=== PATIENT | male | born 1940 | race Caucasian/White ===

== ENCOUNTER 2019-02-06 07:19 | Day surgery (SDC) | payer MEDICARE, OTHER ==
[2019-02-06] MEDS ORDERED: Dextrose 5%-Lactated Ringers 1,000 ML IV SCH (08:00)
[2019-02-06] MEDS ORDERED: fentaNYL 100 MCG/2 ML SDV ONE (08:38)
[2019-02-06] MEDS ORDERED: Midazolam 1 MG/ML 2 ML SDV ONE (08:38)
[2019-02-06] MEDS ORDERED: Propofol 200 MG/20 ML SDV ONE (08:38)
--- NOTE | 2019-02-12 12:15 | OR ---
DATE OF PROCEDURE: 02/06/2019 SURGEON: Farooq Morse MD PREOPERATIVE DIAGNOSIS: Blood in stool, with falling ferritin levels. POSTOPERATIVE DIAGNOSES: 1. Blood in stool, with falling ferritin levels. 2. Normal upper gastrointestinal endoscopy. 3. Colonoscopy showing: a. Minimal left-sided diverticulosis. b. Excoriated mixed hemorrhoids with [place] thrombosed hemorrhoid (probable bleeding source). OPERATIVE PROCEDURES: 1. Esophagogastroduodenoscopy with antral biopsies for CLOtest. 2. Flexible colonoscopy. ANESTHESIA: IV sedation. INDICATION FOR PROCEDURE: This is a 78-year-old referred for upper and lower endoscopy. The patient had some episodes of blood in his stool along with falling ferritin level. Given this, he is undergoing upper and lower endoscopies with biopsies and/or polypectomy as indicated. Potential risks including bleeding and perforation were discussed, and the patient wishes to proceed. DETAILS OF PROCEDURE: The patient was taken to the operating room and placed in a left lateral decubitus position. IV sedation was administered, after which the upper GI endoscope was passed orally through the length of the esophagus and into the stomach with retroflexion view of the fundus, and thereafter, through the pyloric channel and into the proximal duodenum. Findings included normal hypopharynx, larynx, upper esophageal sphincter, and esophageal body. At the EG junction, no significant inflammation or hiatal hernia were present, and the stomach had no retained bile or other contents. There was no significant inflammation of the antrum. Likewise, the pyloric channel and duodenum at the junction of the third and fourth portions were unremarkable. At this point, biopsies were obtained from the antrum and sent to assess the patient's H pylori status by means of a CLOtest. Minimal bleeding from the biopsy sites was seen, and the procedure was then concluded. Attention was then taken to the colonoscopy. Initial digital rectal exam revealed a somewhat thrombosed, [place] hemorrhoid that had some blood within it as well as a small amount on the surface. Apart from that, the digital rectal exam was unremarkable. As one passed the scope into the rectum and was passed through the anal canal and into the rectum, there was diffusely excoriated hemorrhoids. On retroflexion, confirmed the above findings. Nothing appeared to be neoplastic, neither by palpation or visualization in this case. From that point, the patient had the scope passed to the level of the cecum. The prep was fairly good with only a small amount of liquid stool being present. The patient has very minimal uncomplicated left colonic diverticulosis. Otherwise, the exam was unremarkable with no areas of polyps or other signs of neoplasia, and no areas of colitis. The scope was then withdrawn, the above findings reconfirmed, and the procedure then concluded. The patient will be recommended to obtain surgical evaluation should the bleeding become heavy and/or persistent in which case re-treatment from the hemorrhoidal disease might be warranted. Otherwise, we will take a watchful, waiting approach at this point. Farooq Morse MD /[id number]
== END 2019-02-06 11:10 | disposition home or self-care (01) ==
LOC: JP.SDS 07:19
PROVIDERS: ATTEND Surgery
DX: K92.1 Melena (principal); K64.5 Perianal venous thrombosis; D64.9 Anemia, unspecified; I10 Essential (primary) hypertension; E03.9 Hypothyroidism, unspecified
CPT/HCPCS: 43239; 45378; 87081; J2250; J2704; J3010; J7042

== ENCOUNTER 2022-09-14 09:21 | Emergency (ER) | payer MEDICARE, OTHER ==
[2022-09-14] MEDS ORDERED: HYDROmorphone 1 MG/ML Syringe IM ONE (10:26)
== END 2022-09-14 11:24 | disposition home or self-care (01) ==
LOC: JP.ED 09:21
DX: M54.42 Lumbago with sciatica, left side (principal); E03.9 Hypothyroidism, unspecified; I48.91 Unspecified atrial fibrillation; I10 Essential (primary) hypertension; Z95.0 Presence of cardiac pacemaker; Z91.048 Other nonmedicinal substance allergy status; Z88.8 Allergy status to other drugs, medicaments and biological substances; Z79.82 Long term (current) use of aspirin; Z79.899 Other long term (current) drug therapy
CPT/HCPCS: 96372; 99283; J1170

== ENCOUNTER 2025-01-08 23:44 | Emergency (ER) | payer MEDICARE, OTHER | END 2025-01-09 01:12 | disposition home or self-care (01) | LOC: JP.ED 23:44 | DX: S61.012A Laceration without foreign body of left thumb without damage to nail, initial encounter (principal); I10 Essential (primary) hypertension; E78.00 Pure hypercholesterolemia, unspecified; E03.9 Hypothyroidism, unspecified; Z88.8 Allergy status to other drugs, medicaments and biological substances; Z91.048 Other nonmedicinal substance allergy status; Z79.82 Long term (current) use of aspirin; Z79.890 Hormone replacement therapy; Z79.899 Other long term (current) drug therapy; X58.XXXA Exposure to other specified factors, initial encounter | CPT/HCPCS: 99282; 99283 ==

== ENCOUNTER 2025-01-10 07:36 | Emergency (ER) | payer MEDICARE, OTHER | END 2025-01-10 08:53 | disposition home or self-care (01) | LOC: JP.ED 07:36 | DX: S61.412A Laceration without foreign body of left hand, initial encounter (principal); I10 Essential (primary) hypertension; E78.00 Pure hypercholesterolemia, unspecified; E03.9 Hypothyroidism, unspecified; Z87.891 Personal history of nicotine dependence; Z88.8 Allergy status to other drugs, medicaments and biological substances; Z91.048 Other nonmedicinal substance allergy status; Z79.82 Long term (current) use of aspirin; Z79.890 Hormone replacement therapy; Z79.899 Other long term (current) drug therapy; W23.1XXA Caught, crushed, jammed, or pinched between stationary objects, initial encounter | CPT/HCPCS: 99282 ==